=== PATIENT | female | born 1995 | race Caucasian/White ===

== ENCOUNTER 2022-12-31 15:19 | Emergency (ER) | payer OTHER ==
[2022-12-31 15:27] VITALS: BP 126/94
[2022-12-31] MEDS ORDERED: SODIUM CHLORIDE 0.9% 1,000 ML IV STA (15:45)
[2022-12-31 15:58] LABS: BASOPHILS % (AUTO) 0.2 %; HCT - HEMATOCRIT 42.1 % (37.0-47.0); HGB - HEMOGLOBIN 14.2 g/dL (12.0-16.0); LYMPHOCYTES # (AUTO) 1.1 10^3/uL (1.5-3.5); LYMPHOCYTES % (AUTO) 13.7 %; MEAN CORPUSCULAR HGB CONC 33.7 g/dL (32.0-36.0); MEAN CORPUSCULAR VOLUME 86.1 fL (81.0-99.0); MEAN PLATELET VOLUME 9.1 fL (7.9-10.8); MONOCYTES # (AUTO) 0.3 10^3/uL (0.0-1.0); MONOCYTES % (AUTO) 3.6 %; NEUTROPHILS # (AUTO) 6.9 10^3/uL (1.5-6.6); NEUTROPHILS % (AUTO) 82.3 %; PLT - PLATELET COUNT 248 10^3/uL (130-450); RED BLOOD COUNT 4.89 10^6/uL (4.20-5.40); RED CELL DISTRIBUTION WIDTH 11.8 % (12.0-15.0); WHITE BLOOD COUNT 8.3 x10^3/uL (4.8-10.8)
[2022-12-31] MEDS ORDERED: ONDANSETRON 4 MG/2 ML VIAL IVP STA (16:02)
[2022-12-31 16:15] LABS: ALBUMIN 4.1 g/dL (3.2-5.5); ALBUMIN/GLOBULIN RATIO 1.1 (1.0-2.2); BILIRUBIN,TOTAL 0.3 mg/dL (0.2-1.0); CALCIUM 9.3 mg/dL (8.5-10.3); CREATININE 0.5 mg/dL (0.4-1.0); MAGNESIUM 2.1 mg/dL (1.7-2.8); PHOSPHORUS 3.5 mg/dL (2.5-4.6); POTASSIUM 3.6 mmol/L (3.5-5.0); TOTAL PROTEIN 7.7 g/dL (6.7-8.2)
[2022-12-31] MEDS ORDERED: PROMETHAZINE INJ 12.5 MG in SODIUM CHLORIDE 0.9% 50 ML IV STA (17:05)
[2022-12-31] MEDS ORDERED: DEXAMETHASONE 10 MG/ML VIAL IV STA (17:05)
--- NOTE | 2022-12-31 17:10 | ED Physician Documentation ---
History of Present Illness - Stated complaint Stated Complaint: MORNING SICKNESS,HEADACE - Chief complaint Chief Complaint: Abd Pain - History obtained from History obtained from: Patient - Additonal information Additional information: The patient comes to the emergency department chief complaint of nausea and vomiting in association with her first trimester , as well as headache. The patient states she has had a headache since yesterday and that has been mostly on her left side. She does not really have a history of migraines, but states her mother did, especially during . The patient denies any fevers or chills. No neck pain or stiffness. She has been experiencing related nausea and vomiting for the last several weeks. She is about 10 weeks . The patient denies any other complaints at this time. She states her symptoms are consistent with her other bouts of related nausea. PD PAST MEDICAL HISTORY - Present Medications Home Medications: Ambulatory Orders Medication Instructions Recorded Confirmed Ondansetron Odt [Zofran] 4 mg TL Q6H PRN #20 tablet 12/31/22 Sumatriptan [Imitrex] 20 mg NS Q12H PRN #5 each 12/31/22 - Allergies Allergies/Adverse Reactions: Allergies Allergy/AdvReac Type Severity Reaction Status Date / Time No Known Drug Allergies Allergy Verified 12/31/22 15:27 PD ED PE NORMAL - Vitals Vital signs reviewed: Yes - General General: Alert and oriented X 3, No acute distress, Well developed/nourished, Other (Patient is sitting in a darkened room with sunglasses on but otherwise, appears well.) - HEENT HEENT: Atraumatic, PERRL, EOMI, Moist mucous membranes - Neck Neck: Supple, no meningeal sign - Cardiac Cardiac: RRR, No murmur - Respiratory Respiratory: No respiratory distress, Clear bilaterally - Abdomen Abdomen: Soft, Non tender, Non distended - Derm Derm: Normal color, Warm and dry, No rash - Extremities Extremities: No deformity, No edema - Neuro Neuro: Alert and oriented X 3, Other (Grossly intact) - Psych Psych: Normal mood, Normal affect Results - Vitals Vitals: Vital Signs - 24 hr 12/31/22 12/31/22 15:23 15:27 Temperature 36.9 C 36.9 C Heart Rate 104 H 104 H Respiratory 16 16 Rate Blood Pressure 126/94 H 126/94 H O2 Saturation 100 100 Oxygen O2 Source Room air - Labs Labs: Laboratory Tests 12/31/22 12/31/22 15:52 15:52 WBC 8.3 RBC 4.89 Hgb 14.2 Hct 42.1 MCV 86.1 MCH 29.0 MCHC 33.7 RDW 11.8 L Plt Count 248 MPV 9.1 Neut # (Auto) 6.9 H Lymph # (Auto) 1.1 L Starr # (Auto) 0.3 Eos # (Auto) 0.0 Baso # (Auto) 0.0 Absolute Nucleated RBC 0.00 Nucleated RBC % 0.0 Sodium 136 Potassium 3.6 Chloride 104 Carbon Dioxide 22 Anion Gap 10.0 BUN 11 Creatinine 0.5 Estimated GFR (MDRD) 150 Glucose 96 Calcium 9.3 Phosphorus 3.5 Magnesium 2.1 Total Bilirubin 0.3 AST 16 ALT 14 Alkaline Phosphatase 50 Total Protein 7.7 Albumin 4.1 Globulin 3.6 Albumin/Globulin Ratio 1.1 Lipase 33 PD Medical Decision Making - ED course Complexity details: reviewed results, re-evaluated patient, considered differential, d/w patient ED course: The patient's laboratory studies were unremarkable. She was treated symptomatically with IV fluids and Zofran initially, and then Phenergan and Decadron. Patient reported feeling much better. We have discussed treatment of migraine and related nausea at home. We have discussed the usual indications for return and the need for follow-up for care. Departure - Departure Disposition: 01 Home, Self Care Clinical Impression: related nausea and vomiting, antepartum Migraine Qualifiers: Migraine type: unspecified Status migrainosus presence: without status migrainosus Intractability: not intractable Qualified Code(s): G43.909 - Migraine, unspecified, not intractable, without status migrainosus Condition: Stable Instructions: ED Preg Morning Sickness, ED Headache Migraine Prescriptions: Sumatriptan [Imitrex] 20 mg NS Q12H PRN #5 each PRN Reason: Migraine Ondansetron Odt [Zofran] 4 mg TL Q6H PRN #20 tablet PRN Reason: Nausea / Vomiting Comments: Your labs look great. You have been given a few medications today for your nausea and headache that are safe in . A prescription for medication for migraine and for nausea has been electronically transmitted to the [facility] pharmacy in [place] your request. Please take these medications as needed. You may also use caffeine to help with your migraine symptoms, should they recur. Please continue your plans to follow-up with your OB to initiate care. Be sure to get plenty of clear liquids to drink to stay hy drated.
== END 2022-12-31 18:13 | disposition home or self-care (01) ==
LOC: ED 15:19
DX: O21.8 Other vomiting complicating pregnancy (principal); O99.351 Diseases of the nervous system complicating pregnancy, first trimester; G43.909 Migraine, unspecified, not intractable, without status migrainosus; Z3A.00 Weeks of gestation of pregnancy not specified
CPT/HCPCS: 36415; 80053; 83690; 83735; 84100; 85025; 96365; 96372; 99283; 99284; J7040

== ENCOUNTER 2023-01-02 08:00 | Outpatient (CLI) | payer OTHER ==
[2023-01-02 15:39] LABS: BILIRUBIN,URINE NEGATIVE (NEGATIVE); GLUCOSE, URINE (UA) NEGATIVE (NEGATIVE); KETONES,URINE (UA) NEGATIVE (NEGATIVE); LEUKOCYTE ESTERASE, URINE MODERATE (NEGATIVE); NITRITE,URINE NEGATIVE (NEGATIVE); OCCULT BLOOD,URINE NEGATIVE (NEGATIVE); PROTEIN,URINE NEGATIVE (NEGATIVE); UROBILINOGEN,URINE 0.2 (NORMAL) E.U./dL (NORMAL)
[2023-01-02 15:48] LABS: AMORPHOUS SEDIMENT,UR Few /LPF; BACTERIA,URINE Many /HPF (None Seen); CLARITY,URINE CLOUDY (CLEAR); MUCUS,URINE Few Strands; RBC,URINE 0-5 /HPF (0-5); SQUAMOUS EPITHELIAL CELL,UR MANY Squamous (<= Few); WBC,URINE >25 /HPF (0-5)
== END 2023-01-02 23:59 | disposition home or self-care (01) ==
LOC: LAB 08:00
PROVIDERS: ATTEND Nurse Practitioner
DX: Z34.90 Encounter for supervision of normal pregnancy, unspecified, unspecified trimester (principal)
CPT/HCPCS: 81001; 87086

== ENCOUNTER 2023-01-16 16:07 | Outpatient (CLI) | payer OTHER ==
[2023-01-16 17:11] LABS: BILIRUBIN,URINE NEGATIVE (NEGATIVE); GLUCOSE, URINE (UA) NEGATIVE (NEGATIVE); KETONES,URINE (UA) NEGATIVE (NEGATIVE); LEUKOCYTE ESTERASE, URINE MODERATE (NEGATIVE); NITRITE,URINE NEGATIVE (NEGATIVE); OCCULT BLOOD,URINE NEGATIVE (NEGATIVE); PH,URINE 5.5 PH (5.0-7.5); PROTEIN,URINE NEGATIVE (NEGATIVE); UROBILINOGEN,URINE 0.2 (NORMAL) E.U./dL (NORMAL)
[2023-01-16 17:13] LABS: CLARITY,URINE HAZY (CLEAR)
[2023-01-16 18:22] LABS: BACTERIA,URINE Few /HPF (None Seen); RBC,URINE 0-5 /HPF (0-5); SQUAMOUS EPITHELIAL CELL,UR MOD Squamous (<= Few)
--- NOTE | 2023-01-16 21:03 | Ultrasound Report ---
PROCEDURE: OB First Trimester INDICATIONS: POSITIVE TEST OUTSIDE/PRIOR DATING DATA: Last menstrual period (LMP): 10/20/2022. LMP-based estimated date of delivery (MAKSIM): 07/27/2023. First dating scan (date and location): 01/16/2023, current study. Estimated date of delivery (MAKSIM) from first dating scan: 07/25/2023. TECHNIQUE: Real-time scanning was performed of the fetus and maternal pelvic organs, with image documentation. COMPARISON: None FINDINGS: The maternal cervix is 4.0 cm and closed. The uterus is vertically oriented. There is a ge stational sac with a gestational sac diameter of 6.89 cm corresponding to 13 week 3 day gestation. It contains a single living fetus with a heart rate of 166 bpm. The average crown-rump length is 6.5 cm corresponding to the 12 weeks 6 day gestation. Both ovaries are within normal limits. Probable involuting left ovarian corpus luteum. IMPRESSION: 1. Single living intrauterine with a gestational age by ultrasound of 07/25/2023. This is in good agreement with the clinically assigned MAKSIM of 07/27/2023. Reviewed by: Bhumi Gillespie MD on 01/16/2023 9:02 PM PDT Approved by: Bhumi Gillespie MD on 01/16/2023 9:02 PM PDT Station ID: [id number]
== END 2023-01-16 16:08 | disposition home or self-care (01) ==
LOC: DI 16:07
PROVIDERS: ATTEND Nurse Practitioner
DX: Z34.91 Encounter for supervision of normal pregnancy, unspecified, first trimester (principal); Z36.89 Encounter for other specified antenatal screening
CPT/HCPCS: 81001; 87086

== ENCOUNTER 2023-01-28 14:43 | Outpatient (CLI) | payer OTHER ==
[2023-01-28 15:19] LABS: BILIRUBIN,URINE NEGATIVE (NEGATIVE); GLUCOSE, URINE (UA) NEGATIVE (NEGATIVE); KETONES,URINE (UA) 15 mg/dL (NEGATIVE); LEUKOCYTE ESTERASE, URINE MODERATE (NEGATIVE); NITRITE,URINE NEGATIVE (NEGATIVE); OCCULT BLOOD,URINE MODERATE (NEGATIVE); PH,URINE 6.5 PH (5.0-7.5); PROTEIN,URINE NEGATIVE (NEGATIVE); UROBILINOGEN,URINE 0.2 (NORMAL) E.U./dL (NORMAL)
[2023-01-28 15:26] LABS: CLARITY,URINE CLOUDY (CLEAR)
[2023-01-28 15:40] LABS: BACTERIA,URINE Few /HPF (None Seen); SQUAMOUS EPITHELIAL CELL,UR FEW Squamous (<= Few); WBC,URINE >25 /HPF (0-5)
[2023-01-29 00:19] LABS: CHLAMYDIA TRACHOMATIS DNA NEGATIVE (NEGATIVE); NEISSERIA GONORRHOEAE DNA NEGATIVE (NEGATIVE); TRICHOMONAS VAGINALIS DNA NEGATIVE (NEGATIVE)
== END 2023-01-28 14:44 | disposition home or self-care (01) ==
LOC: LAB.WC 14:43
PROVIDERS: ATTEND Nurse Practitioner
DX: R30.0 Dysuria (principal); Z11.3 Encounter for screening for infections with a predominantly sexual mode of transmission
CPT/HCPCS: 81001; 87086; 87181; 87491; 87591; 87661

== ENCOUNTER 2023-02-17 16:49 | Outpatient (CLI) | payer OTHER ==
[2023-02-17 17:24] LABS: BASOPHILS % (AUTO) 0.4 %; EOSINOPHILS # (AUTO) 0.1 10^3/uL (0.0-0.7); EOSINOPHILS % (AUTO) 1.5 %; HCT - HEMATOCRIT 35.8 % (37.0-47.0); HGB - HEMOGLOBIN 11.8 g/dL (12.0-16.0); LYMPHOCYTES # (AUTO) 1.6 10^3/uL (1.5-3.5); LYMPHOCYTES % (AUTO) 30.9 %; MEAN CORPUSCULAR HEMOGLOBIN 28.9 pg (27.0-31.0); MEAN CORPUSCULAR VOLUME 87.7 fL (81.0-99.0); MEAN PLATELET VOLUME 9.5 fL (7.9-10.8); MONOCYTES # (AUTO) 0.4 10^3/uL (0.0-1.0); MONOCYTES % (AUTO) 8.3 %; NEUTROPHILS # (AUTO) 3.1 10^3/uL (1.5-6.6); NEUTROPHILS % (AUTO) 58.7 %; PLT - PLATELET COUNT 209 10^3/uL (130-450); RED BLOOD COUNT 4.08 10^6/uL (4.20-5.40); RED CELL DISTRIBUTION WIDTH 13.5 % (12.0-15.0); WHITE BLOOD COUNT 5.3 x10^3/uL (4.8-10.8)
[2023-02-19 08:10] LABS: RPR Non Reactive (Non Reactive)
[2023-02-19 10:09] LABS: HBsAG SCREEN Negative (Negative)
[2023-02-19 11:10] LABS: VARICELLA-ZOSTER AB IGG <135 index (Immune >165)
[2023-02-20 00:08] LABS: HCV AB Non Reactive (Non Reactive); HIV SCREEN 4TH GENERATION Non Reactive (Non Reactive)
== END 2023-02-17 16:50 | disposition home or self-care (01) ==
LOC: LAB 16:49
PROVIDERS: ATTEND Nurse Practitioner
DX: Z34.90 Encounter for supervision of normal pregnancy, unspecified, unspecified trimester (principal)
CPT/HCPCS: 36415; 85025; 86592; 86762; 86787; 86803; 86850; 86900; 86901; 87340; 87389